=== PATIENT | female | born 1990 | race Caucasian/White ===

== ENCOUNTER 2016-12-08 03:03 | Inpatient (IN) ==
[2016-12-08] MEDS ORDERED: Ondansetron 4 MG/2 ML VIAL IVP PRN (03:44)
[2016-12-08] MEDS ORDERED: Naloxone 0.4 MG/ML INJ IVP PRN (03:44)
[2016-12-08] MEDS ORDERED: Famotidine 20 MG/2 ML VIAL IVP PRN (03:44)
[2016-12-08] MEDS ORDERED: Ringers Solution, Lactated 1,000 ML IVC SCH (03:45)
--- NOTE | 2016-12-08 03:48 | OB/GYN History & Physical ---
Date of Encounter: 12/08/16 Time of Encounter: 03:48 Assessment and Plan (1) 40 weeks gestation of Current visit: Yes Status: Acute admit for labor (2) Rubella non-immune status, antepartum Current visit: Yes Status: Acute Patient to be offered MMR prior to discharge. History of Present Illness Chief complaint: Patient presenst immanuel and 9cm HPI: Ms. Greco is a 26 year old female at 40w3d with EDC of 12/05/2016 presents to labor and delivery with complaints of contractions that started early Friday Morning. Patient reports +FM, denies LOF or VB. Blood type: O+, Hep B: Nonreactive, Rubella: Nonimmune, 1 hour gtt: Normal. Ultrasound of Tuesday December 06, 2016 gave JODIE of 20, EFW 11#1oz. Patient was offered a primary c/s for macrosomia. Patient declined. Patient delivered a 9#12oz infant vaginally. Dr. Adair notified of patient's history and is available on unit i assistance is needed. Past Med Surg Social Fam HX - Past Medical History Source: patient Medical history: no medical history Psychiatric history: no psych history - Past Surgical History Surgical History: no surgical history - Social History Smoking Status: Never smoker Smokeless Tobacco Status: No Alcohol use: none Drug use: none Occupational status: employed Current living situation: Home - Independent Activity Level: Independent ambulation Recent Out of Country Travel Within the Last 8 Weeks: No Exposure or Possible Exposure to Illness During Travel: No Obstetrical History - Pregnancies : 4 Para: 3 Term: 3 : 0 Ab's: 0 Livin Review of System OB - Constitutional Constitutional ROS IM: no fatigue, no fever(s), no headache(s) - Cardiovascular Cardiovascular: no chest pain, no palpitations, no rapid heart rate, no syncope - Respiratory Respiratory: no dyspnea - Gastrointestinal Gastrointestinal: no abdominal pain, no diarrhea, no heartburn, no nausea, no vomiting - Genitourinary Genitourinary: no abnormal vaginal bleeding, no dysuria, no flank pain, no urinary incontinence, no urinary urgency, no vaginal odor, no vaginal pruritis Exam - Constitutional Constitutional: well developed, well nourished, no acute distress, average body habitus - HEENT HEENT: Normocephaly, Mucus Membranes Moist - Neck Neck exam: full ROM, supple - Lungs Respiratory exam: CTAB - Cardiovascular Cardiovascular exam: RRR, +S1, +S2 - Abdomen Abdomen: Present: bowel sounds normal, gravid, non tender - Extremities Extremities exam: full ROM, normal capillary refill, normal inspection Deep Tendon Reflex Grade: 2+ Normal - Cervix Dilation: 9 (Per RN) Effacement: 100 - Anus/Rectum Anus/Rectum: Present: normal perianal skin - Comments Comments: FHR 145 bpm moderate variability +15x15 accels no decels noted CAt. 1 tracing. Contractions irregular. Results All other labs normal. - VTE Reasons for not Prescribing Prophylaxis: Treatment not Indicated - Low risk for VTE
[2016-12-08 04:07] LABS: Basophils % 0.3 %; Eosinophils # 0.2 K/mcL (0.0-0.6); Eosinophils % 1.3 %; Hematocrit 39.6 % (35.3-44.9); Immature Granulocytes % 1.1 % (0-4); Immature Platelets 5.4 % (1.1-6.1); Lymphocytes # 3.1 K/mcL (0.6-4.6); Mean Corpuscular HGB Conc 32.8 g/dL (31.6-35.5); Mean Corpuscular Volume 85.3 fL (83.0-100.0); Mean Platelet Volume 10.6 fL (9.4-12.4); Monocytes # 0.7 K/mcL (0.0-1.3); Monocytes % 6.2 %; Neutrophils # 7.7 K/mcL (1.6-8.9); Platelet Count 249 K/mcL (140-400); Red Blood Count 4.64 M/mcL (3.82-4.97); Red Cell Distribution Width 14.4 % (11.5-14.5); Segmented Neutrophils % 65.1 %
[2016-12-08] MEDS ORDERED: Oxytocin 20 units/ LR 1000 mL 20 UNIT/1,000 ML BAG IVC ONE ×2 (04:35→10:23)
[2016-12-08] MEDS ORDERED: Oxytocin 20 units/ LR 1000 mL 20 UNIT/1,000 ML BAG IVC SCH (06:15)
--- NOTE | 2016-12-08 09:49 | OB/GYN Procedure Note ---
Delivery - Delivery Date: 12/08/16 Provider: Sapna Oliver Intrapartum events: none Delivery induction: none Delivery augmentation: rupture of membranes, pitocin Delivery monitor: external FHT, external uterine, internal FHT Anesthesia: epidural Estimated Blood Loss: 400 - (s) A Infant Delivery Date: 12/08/16 Delivery Time: 09:07 Presentation: vertex Position: OA Route of delivery: Gender: Female Viability: Viable Pounds: 10 Ounces: 4 Weight Gram: 4.66 kg at 1 minute: 8 at 5 mins: 9 Shoulder Dystocia: not encountered Shoulder Dystocia Maneuvers: Aung maneuver Specimens collected: cord blood Placenta: spontaneous, uterine exploration Cord: 3 umbilical vessels - Repair Episiotomy: none Laceration Description: None - Complications Delivery complications: none - Disposition Mom disposition: stable in LDR [place] disposition: stable in LDR - Comments Comments: Patient reports feeling pressure. Patient placed in stirrups and and prepped for delivery. Patient began pushing with contractions. McRobert's was used to help delivery of infant. delivered spontaneously no nuchal, no shoulder dystocia or meconium was noted. was placed on maternal abdomen cord was clamped and cut. Perineum was intact. Spontaneous delivery of placenta. Placenta appeared to have an extra lobe and was sent to pathology. Infant was placed skin to skin and is breast feeding. Both Mother and infant are stable in LDR.
[2016-12-08] MEDS ORDERED: Measles/Mumps/Rubella Vacc 0.5 ML VIAL SQ PRN (10:23)
[2016-12-08] MEDS ORDERED: Oxytocin 20 units/ LR 1000 mL 20 UNIT/1,000 ML BAG IV SCH (10:23)
[2016-12-08] MEDS ORDERED: Acetaminophen 325 MG TABLET PO PRN (10:23)
[2016-12-08] MEDS ORDERED: *HR* HYDROcodone/Acet 5/325 mg TABLET PO PRN (10:23)
[2016-12-08] MEDS ORDERED: Ibuprofen 600 MG TABLET PO PRN (10:23)
--- NOTE | 2016-12-09 08:05 | Discharge Summary ---
Date of Encounter: 12/09/16 Time of Encounter: 08:03 - Discharge Diagnosis (1) 40 weeks gestation of Priority: Secondary Status: Acute (2) Rubella non-immune status, antepartum Priority: Secondary Status: Acute Comments: Will offer MMR prior to discharge. (3) Vaginal delivery Priority: Primary Status: Acute Comments: Continue routine care discharge home today follow up in 4-6 weeks with CNM - Discharge Medications Home Medications: Calcium 1,000 PO DAILY 12/08/16 [History] Tablet PO DAILY 12/08/16 [History] Vit/FA 1 each PO DAILY tablet 12/09/16 [Rx] Allergies/Adverse Reactions: Allergies No Known Allergies Allergy (Verified 12/08/16 04:14) Data Procedures and tests throughout hospitalization: Laboratory Tests 12/08/16 03:45 WBC 11.9 H RBC 4.64 Hgb 13.0 Hct 39.6 MCV 85.3 MCH 28.0 MCHC 32.8 RDW 14.4 Plt Count 249 MPV 10.6 Immature Gran % 1.1 Seg Neutrophils % 65.1 Lymphocytes % 26.0 Monocytes % 6.2 Eosinophils % 1.3 Basophils % 0.3 Neutrophils # 7.7 Lymphocytes # 3.1 Monocytes # 0.7 Eosinophils # 0.2 Basophils # 0.0 Immature Plt Fraction 5.4 Date of admission: 12/08/16 03:03 Primary care physician: Lizzy Ragsdale MD Consults: 12/08/16 10:23 Consult to Merchant Seaman [CONS] Routine Comment: Vaginal delivery, consult needed Discharging clinician: Sapna Oliver Anticipated date of discharge: 12/09/16 - Patient Status Disposition: Home, Self-Care Condition: Good Functional capacity at discharge: independent ambulation - Discharge Instructions Follow Up With: Lizzy Ragsdale MD [Primary Care Provider] - Sapna Oliver CNM [Non-Partnered Physician] - - Diet and Activity Activity: increase activity as tolerated Diet: regular diet Hospital Course Reason for admission: active labor Delivery: Episiotomy: none Laceration: none Other procedures: none complications: none Discharge diagnosis: IUP at term delivered [place] baby: female (breast feeding) Time Attestation: Total time spent providing and/or coordinating discharge services: Time Spent: Less than 30 minutes Exam - Constitutional Vitals: Temp Pulse Resp BP Pulse Ox 97.6 F 80 16 99/58 97 12/09/16 04:35 12/09/16 04:35 12/09/16 04:35 12/09/16 04:35 12/09/16 04:35 General appearance IM: A&O X 3, pleasant, answers questions appropriately - Respiratory Respiratory exam: Present: CTAB - Cardiovascular Cardiovascular exam IM: Present: RRR, +S1, +S2 - GI/Abdominal GI/Abdominal exam IM: normal bowel sounds - Uterine Tone: Firm Uterus Position: 1 Finger Below Umbilicus, Midline - Extremities Exam Extremities exam IM: Present: full ROM, normal capillary refill, normal inspection - Neurological Exam Neurological exam: alert, oriented X3, reflexes normal
[2016-12-09 08:45] VITALS: BP 108/72
[2016-12-09] MEDS ORDERED: Prenatal Vit/FA 1 EACH TABLET PO SCH (09:00)
== END 2016-12-09 11:35 | disposition home or self-care (01) | DRG 775 ==
LOC: 1NENULAB → OBSVTOIN 03:03 → 1NENUOBS 12:25
PROVIDERS: ADMIT Advanced Practice Midwife; ATTEND Advanced Practice Midwife

== ENCOUNTER 2019-03-29 05:35 | Inpatient (IN) ==
[~2019-03-29 05:35] MED LIST: *HR* Nalbuphine 10 MG/ML AMPUL IVP PRN; Famotidine 20 MG/2 ML VIAL IVP PRN; Lidocaine 1% 20 ML MDV INFILT PRN; Metoclopramide 10 MG/2 ML VIAL IVP PRN; Naloxone 0.4 MG/ML INJ IVP PRN
[2019-03-29] MEDS ORDERED: Ringers Solution, Lactated 1,000 ML IVC SCH (05:45)
[2019-03-29 05:55] LABS: Basophils % 0.3 %; Eosinophils # 0.2 K/mcL (0.0-0.6); Eosinophils % 1.8 %; Hematocrit 36.9 % (35.3-44.9); Hemoglobin 12.2 g/dL (11.5-15.4); Lymphocytes # 2.8 K/mcL (0.6-4.6); Lymphocytes % 22.1 %; Mean Corpuscular HGB Conc 33.1 g/dL (31.6-35.5); Mean Corpuscular Hemoglobin 28.8 pg (28.0-33.3); Mean Corpuscular Volume 87.2 fL (83.0-100.0); Mean Platelet Volume 10.2 fL (9.4-12.4); Monocytes # 0.7 K/mcL (0.0-1.3); Monocytes % 5.6 %; Neutrophils # 8.6 K/mcL (1.6-8.9); Platelet Count 250 K/mcL (140-400); Red Blood Count 4.23 M/mcL (3.82-4.97); Red Cell Distribution Width 13.7 % (11.5-14.5); Segmented Neutrophils % 69.2 %; White Blood Count 12.4 K/mcL (4.3-11.1)
[2019-03-29 05:59] LABS: Amphetamine Screen,Urine Negative ng/mL (Cutoff=1000); Barbiturate Screen,Urine Negative ng/mL (Cutoff=200); Benzodiazepines Screen,Urine Negative ng/mL (Cutoff=200); Cannabinoid Screen,Urine Negative ng/mL (Cutoff = 50); Cocaine Screen,Urine Negative ng/mL (Cutoff= 300); Opiate Screen,Urine Negative ng/mL (Cutoff=300); Phencyclidine Screen,Urine Negative ng/mL (Cutoff=25)
--- NOTE | 2019-03-29 06:03 | OB/GYN History & Physical ---
Date of Encounter: 03/29/19 Time of Encounter: 05:51 Assessment and Plan (1) 39 weeks gestation of Current visit: Yes Status: Acute (2) Spontaneous onset of labor Current visit: Yes Status: Acute Admit to labor and delivery Nubain and epidural as desired Intermittent auscultation Ambulation as desired GBS negative Anticipate (3) Rubella non-immune status, antepartum Current visit: No Status: Acute History of Present Illness Chief complaint: Spontaneous onset of labor HPI: Ms. Greco is a 29 year old female 39 and 0 weeks gestation presents to triage with reports of contraction. Patient states she is been having contracti ons since yesterday morning. Reports good movement, denies vaginal bleeding or leaking of fluid. care with nurse midwives, late entry to care. Patient also has umbilical hernia. History of LGA infants, largest baby 10 lbs. 4 oz. hemorrhage with last delivery Labs: O+, rubella nonimmune, varicella immune, GBS negative, all other serologies negative Past Med Surg Social Fam HX - Past Medical History Source: patient Medical history: no medical history Additional medical history: asthma Psychiatric history: no psych history - Past Surgical History Surgical History: no surgical history - Social History Smoking Status: Never smoker Smokeless Tobacco Status: No Alcohol use: none Drug use: none - Family History Mother Living Status: Still Living Hx Family Cardiac Disorders: No Hx Family Respiratory Disorders: No Hx Family Cancer: No Hx Family GI Disorders: No Hx Family Endocrine Disorder: No Hx Family Musculoskeletal Disorders: No Hx Family Neuromuscular Disorders: No Hx Family Neurologic Disorders: No Hx Family HEENT Disorders: No Hx Family Autoimmune Disorders: No Hx Family Reproductive Disorders: No Hx Family Psychosocial Disorders: No Hx Family Medical Disorders: No Obstetrical History - Pregnancies : 5 Para: 4 Term: 4 : 0 Ab's: 0 Livin Medications and Allergies Calcium 1,000 PO DAILY 12/08/16 [History] Tablet PO DAILY 12/08/16 [History] Vit/FA 1 each PO DAILY tablet 12/09/16 [Rx] Albuterol Sulfate [Albuterol Inhaler] 03/29/19 [History] Albuterol Sulfate [Proair Hfa] 03/29/19 [History] Allergy/AdvReac Type Severity Reaction Status Date / Time No Known Allergies Allergy Verified 12/08/16 04:14 Exam - Constitutional Constitutional: well developed, well nourished, no acute distress - Neck Neck exam: full ROM - Lungs Respiratory exam: CTAB - Cardiovascular Cardiovascular exam: RRR, +S1, +S2 - Abdomen Abdomen: Present: gravid, non tender - Extremities Extremities exam: normal capillary refill, normal inspection - Cervix Dilation: 7 (per RN) - Comments Comments: Umbilical hernia noted Results All other labs normal. - VTE Reasons for not Prescribing Prophylaxis: Treatment not Indicated - Low risk for VTE
--- NOTE | 2019-03-29 09:06 | OB Labor Progress Note ---
Date of Encounter: 03/29/19 Time of Encounter: 09:04 Labor Progress Note - Subjective Subjective: Natasha is tolerating her ctxs, every 7-9 minutes. She would like us to break her water to move things along. She plans to have a natural . She has never had an epidural or any pain medication for her deliveries. - Vital Signs Vital Signs: VSS, normotensive - Cervix Cervix: unchanged from [id number]-5-8/80/-1 AROM clear fluid - Heart Tones Heart Tones: 145/mod variability/+A,-D, she has elected to do intermittent monitoring per un it protocol - Elrama Elrama: per patient, q7-9 minutes (she is doing intermittent monitoring) - Interventions Interventions: AROM - Plan Plan: 29yo at 39 0/7 wks for labor who is really advanced cervical dilation, not in active labor, now ruptured for labor induction/augmentation per patient request. Plan to recheck in 2 hours unless there is an urge to push. Continue intermittent monitoring per patient request unless there is any concern.
[2019-03-29] MEDS ORDERED: miSOPROStol 25 MCG TABLET VG PRN (12:01)
[2019-03-29] MEDS ORDERED: Oxytocin 20 units/ LR 1000 mL 20 UNIT/1,000 ML BAG IVC SCH ×2 (14:45→21:27)
[2019-03-29] MEDS ORDERED: Acetaminophen IV 1,000 MG/100 ML INFUS..BTL IVPB ONE (17:54)
[2019-03-29] MEDS ORDERED: *HR* OxyCODONE Immed Rel 5 MG TABLET PO PRN (17:54)
[2019-03-29] MEDS ORDERED: *HR* HYDROmorphone (PF) 1 MG/ML SYRINGE IVP PRN (17:54)
[2019-03-29] MEDS ORDERED: *HR* Promethazine 25 MG/ML VIAL IVP PRN (17:54)
[2019-03-29] MEDS ORDERED: Azithromycin 500 MG in D5% in Water 250 ML IVPB ONE (18:11)
[2019-03-29] MEDS ORDERED: Ringers Solution, Lactated 1,000 ML ONE (18:12)
[2019-03-29] MEDS ORDERED: Ondansetron 4 MG/2 ML VIAL ONE (18:12)
[2019-03-29] MEDS ORDERED: *HR* Oxytocin 10 UNIT/ML VIAL IM ONE (18:12)
[2019-03-29] MEDS ORDERED: Dexamethasone 4 MG/ML VIAL ONE (18:12)
[2019-03-29] MEDS ORDERED: *HR* FentaNYL (PF) 250 MCG/5 ML VIAL ONE (18:12)
[2019-03-29] MEDS ORDERED: *HR* Midazolam HCl 2 MG/2 ML VIAL ONE (18:12)
[2019-03-29] MEDS ORDERED: *HR* FentaNYL (PF) 100 MCG/2 ML VIAL ONE (18:26)
--- NOTE | 2019-03-29 18:28 | OB/GYN Procedure Note ---
Section - Date of procedure: 03/29/19 Preop diagnosis: other (Cord prolapse) Post-op diagnosis: same Procedure: primary low transverse, other (Emergent) Surgeon: Don Bowers Quantitated Blood Loss: 500 Was there an assistant credit manager present: Yes Mount Loader: Elizabeth Hicks Anesthesiologist: Mayi Queen Anesthesia Type: General section complications: none Disposition: Post floor Specimens: Placenta - (s) A Infant Delivery Date: 03/29/19 Delivery Time: 17:47 Presentation: vertex Position: OA Route of delivery: other Gender: Male Viability: Viable Pounds: 9 Ounces: 0 Gram Weight: 4.075 kg at 1 minute: 9 at 5 minutes: 9 Placenta: partial extraction Cord: 3 umbilical vessels - Narrative Narrative: Patient had arrest of dilation at 8-9 cm. Patient had been on knee-chest has not been no progression and nursing felt infant was in occiput posterior presentation. On the monitor we noted deep variable decelerations. One in the room patient was flipped over her back and was examined. There was a cord found to be in the vagina. The cord was immediately elevated into the pelvis. Nursing and anesthesia was immediately notified. Nursing took my place with a hand in the vagina holding the chorda. Patient was taken immediately to the operating room for section. Anesthesia was present in the room multiple nursing staff attacks were present. Dr. Hicks was present to assist with delivery as this was emergency. Patient was immediately prepped and draped given general anesthesia. Once patient was asleep a Pfannenstiel incision was made and carried sharply through subcutaneous taste and fatty tissue until the fascial layers reached. The fascia was then nicked bilaterally and manually dilated. The fascia was then dissected superiorly and inferiorly without difficulty. The rectus abdominis muscles creatures and separate the midline and the peritoneum sharply entered and this was all bluntly dilated. A bladder blade was placed at the inferior margin incision. A lower transverse incision was then made lower uterine segment. Cord came out immediately. The incision was bluntly extended. The incision was then delivered. There was a cord around the neck 1 which was easily reduced. The rest the Pitocin delivered without difficulty. Infant cried immediately upon delivery. Cord was Cut. was passed to NICU team in attendance. Cord blood was obtained. Uterine massage was performed to release the placenta. Placenta was then delivered without any difficulty. The uterus was delivered at this point. Uterine lavage was performed. The incision was then closed the Vicryl suture in a running locking fashion. There was excellent hemostasis. There is one final [id number] placed for final hemostasis. Uterus was replaced the pelvic cavity. The pelvic cavity was rinsed thoroughly with sterile water 2. The fascia was closed with 0 Vicryl suture in a running nonlocking fashion. The suprafascial region was rinsed thoroughly with sterile water 2. All bleeders were then cauterized. The skin was closed terri. Estimated blood loss is 500 mL. Patient delivered a male infant weight was 4075 g, 9 lbs. 0 oz. Estimated blood loss is 500 mL
[2019-03-29] MEDS ORDERED: Propofol 500 MG/50 ML INFUS..BTL ONE (18:56)
[2019-03-29] MEDS ORDERED: *HR* Succinylcholine 200 MG/10 ML VIAL IVP ONE (18:56)
[2019-03-29] MEDS ORDERED: Sennosides 8.6 MG TABLET PO PRN (21:27)
[2019-03-29] MEDS ORDERED: *HR* OxyCODONE/APAP 5/325 TABLET PO PRN (21:27)
[2019-03-29] MEDS ORDERED: Simethicone 80 MG TAB.CHEW PO PRN (21:27)
[2019-03-29] MEDS ORDERED: Ondansetron 4 MG/2 ML VIAL IVP PRN (21:27)
[2019-03-29] MEDS ORDERED: Metoclopramide 10 MG/2 ML VIAL IVP PRN (21:27)
[2019-03-30] MEDS: ceFAZolin 2,000 MG in 0.9 % Sodium Chloride 100 ML IVPB SCH ×3 (00:22→20:02)
[2019-03-30] MEDS: Ibuprofen 600 MG TABLET PO PRN ×3 (05:05→17:57)
--- NOTE | 2019-03-30 06:07 | Anesthesia Evaluation Post Op ---
Date of Encounter: 03/29/19 Time of Encounter: 23:12 - Vital Signs Vital Signs: late entry 0605, vss - Lungs Lungs: Clear Ascult./Percussion - Airway Airway: Non-obstructed - Mental Status Mental Status: Alert & Oriented, Answers Appropriately - Pain Pain Scale used: Xander (Faces) - Nausea Vomiting Nausea Vomiting: Not Present - Hydration Hydration: Ice chips - Discharge PostOp Status: Transfer Patient to floor
[2019-03-30 08:19] LABS: Basophils % 0.2 %; Eosinophils % 0.1 %; Hematocrit 35.4 % (35.3-44.9); Hemoglobin 11.6 g/dL (11.5-15.4); Immature Granulocytes % 0.9 % (0-4); Lymphocytes # 2.4 K/mcL (0.6-4.6); Lymphocytes % 17.2 %; Mean Corpuscular HGB Conc 32.8 g/dL (31.6-35.5); Mean Corpuscular Hemoglobin 29.1 pg (28.0-33.3); Mean Corpuscular Volume 88.9 fL (83.0-100.0); Mean Platelet Volume 9.9 fL (9.4-12.4); Monocytes % 7.4 %; Neutrophils # 10.3 K/mcL (1.6-8.9); Platelet Count 260 K/mcL (140-400); Red Blood Count 3.98 M/mcL (3.82-4.97); Red Cell Distribution Width 13.6 % (11.5-14.5); Segmented Neutrophils % 74.2 %; White Blood Count 13.9 K/mcL (4.3-11.1)
[2019-03-30] MEDS ORDERED: Prenatal Vit/FA 1 EACH TABLET PO SCH (09:00)
--- NOTE | 2019-03-30 11:47 | OB/GYN Progress Note ---
Date of Encounter: 03/30/19 Time of Encounter: 11:42 - Assessment and Plan (1) delivery delivered Current Visit: Yes Status: Acute Maintain incision dressing with abdominal binder for support. Pain medication as needed. Advance diet as tolerated. Ambulate as tolerated. Plan for discharge on POD#2. Code(s): O82 - Encounter for delivery without indication (2) Umbilical hernia Current Visit: Yes Status: Acute Pain management as needed. Referral to general surgery to see about repair of hernia. Cost is a concern for patient. Qualifiers: Obstruction and gangrene presence: without obstruction or gangrene Qualified Code(s): K42.9 - Umbilical hernia without obstruction or gangrene (3) () Current Visit: Yes Status: Acute Assess mother for breast discomfort & nipple soreness. Assess latch, suck & swallow. Encourage feeding on demand at least every 3 hours. Subjective - Subjective Interval history: 29 y/o female section POD#1 with good pain control on Motrin. Has some increased pain when coughs. Tolerating diet well, denies passing flatus. Ambulating without difficulty. Had some passing nipple soreness but states baby is feeding well at breast. Patient reports: appetite normal, pain well controlled, ambulating normally [place]: doing well, nursing well Objective - Vital Signs Latest vital signs: Vital Signs Temp Pulse Resp BP Pulse Ox 03/30/19 07:55 98.3 F 85 16 123/65 03/30/19 04:30 98.3 F 69 14 119/72 96 03/30/19 00:22 98.4 F 74 14 120/69 96 03/29/19 23:00 98.3 F 75 16 118/68 96 03/29/19 22:00 98.4 F 75 16 111/66 95 03/29/19 21:30 98.2 F 83 16 117/68 96 03/29/19 21:00 98.5 F 75 16 114/69 96 Intake and Output 03/29/19 03/30/19 03/30/19 23:59 07:59 15:59 Intake Total 900 / 1140 240 / 1140 Output Total 660 / 660 440 / 540 100 / 540 Balance -660 / -660 460 / 600 140 / 600 Intake: IV Fluids 100 / 100 Ancef 2,000 MG In 0.9 % Sodium 100 / 100 Chloride 100 ML @ 200 mls/hr IVPB Q8HR [facility] Rx#:[id number] Oral 800 / 1040 240 / 1040 Output: Urine 100 / 200 100 / 200 Catheter 660 / 660 340 / 340 Other: Meal Breakfast Percent of Meal Consumed 100% Weight 95.5 kg Patient Weight 03/30/19 23:59 Weight 95.5 kg - Exam Lungs: bilateral: normal Chest: Normal S1, Normal S2 Extremities: Present: normal Abdomen: Present: normal appearance, soft, hernia (umbilical hernia, about 3-4 cm diameter) Incision: Present: normal, dry, intact Uterus: Present: firm Fundal Height: 2 (U/-2) - Labs Labs: Laboratory Results - last 24 hr 03/30/19 08:03 WBC 13.9 H RBC 3.98 Hgb 11.6 Hct 35.4 MCV 88.9 MCH 29.1 MCHC 32.8 RDW 13.6 Plt Count 260 MPV 9.9 Immature Gran % 0.9 Seg Neutrophils % 74.2 Lymphocytes % 17.2 Monocytes % 7.4 Eosinophils % 0.1 Basophils % 0.2 Neutrophils # 10.3 H Lymphocytes # 2.4 Monocytes # 1.0 Eosinophils # 0.0 Basophils # 0.0
[2019-03-30] MEDS ORDERED: 0.9 % Sodium Chloride 250 ML ONE (19:59)
[2019-03-31] MEDS: Ibuprofen 600 MG TABLET PO PRN ×2 (00:27→06:08)
[2019-03-31 08:36] VITALS: BP 122/83
--- NOTE | 2019-03-31 08:59 | Discharge Summary ---
Date of Encounter: 03/31/19 Time of Encounter: 08:57 - Discharge Diagnosis (1) Breast feeding status of mother Priority: Secondary Status: Acute Comments: support prn (2) delivery delivered Priority: Primary Status: Acute Comments: Continue routine care Discharge home today Follow up appt in 1 week for staple removal 2 week incision check with Dr. Hicks - Discharge Medications Prescriptions: New Ibuprofen [Motrin] 600 mg PO Q6HR PRN tablet PRN Reason: Cramping Docusate [Colace] 100 mg PO BID capsule Continued Tablet PO DAILY Calcium 1,000 PO DAILY Albuterol Sulfate [Proventil Inhaler] Albuterol Sulfate [Proair Hfa] Discontinued Vit/FA 1 each PO DAILY tablet Home Medications: Calcium 1,000 PO DAILY 12/08/16 [History] Tablet PO DAILY 12/08/16 [History] Albuterol Sulfate [Proair Hfa] 03/29/19 [History] Albuterol Sulfate [Proventil Inhaler] 03/29/19 [History] Docusate [Colace] 100 mg PO BID capsule 03/31/19 [Rx] Ibuprofen [Motrin] 600 mg PO Q6HR PRN tablet 03/31/19 [Rx] Allergies/Adverse Reactions: Allergy/AdvReac Type Severity Reaction Status Date / Time No Known Allergies Allergy Verified 12/08/16 04:14 Data Procedures and tests throughout hospitalization: Laboratory Tests 03/29/19 03/29/19 03/30/19 05:20 05:20 08:03 WBC 12.4 H 13.9 H RBC 4.23 3.98 Hgb 12.2 11.6 Hct 36.9 35.4 MCV 87.2 88.9 MCH 28.8 29.1 MCHC 33.1 32.8 RDW 13.7 13.6 Plt Count 250 260 MPV 10.2 9.9 Immature Gran % 1.0 0.9 Seg Neutrophils % 69.2 74.2 Lymphocytes % 22.1 17.2 Monocytes % 5.6 7.4 Eosinophils % 1.8 0.1 Basophils % 0.3 0.2 Neutrophils # 8.6 10.3 H Lymphocytes # 2.8 2.4 Monocytes # 0.7 1.0 Eosinophils # 0.2 0.0 Basophils # 0.0 0.0 Urine Opiates Screen Negative Ur Buprenorphine Scrn Negative Ur Barbiturates Screen Negative Ur Phencyclidine Scrn Negative Ur Amphetamines Screen Negative U Benzodiazepines Scrn Negative Urine Cocaine Screen Negative U Marijuana (THC) Screen Negative Ur Drug Screen Interp See Below - Impressions ITS Impressions KUB X-Ray 03/29/19 17:58 IMPRESSION: No radiopaque foreign body identified. D/ / Domingo Barnes MD / Domingo Barnes MD Interpreting Provider: Domingo Barnes MD Date of admission: 03/29/19 05:35 Primary care physician: PCP NONE Consults: 03/30/19 10:37 Consult to Surgery [CONS] Routine Consulting Provider: Patricia Hwang Reason for Consult: umbilical hernia, per pt Sapna spoke to Dr. Guillen during and Dr. Guillen said he would see pt while she is here. She is holiness and would like more information about repair and cost of repair. She was having pain prior to . Call Completed: Yes Discharging clinician: Sapna Oliver Anticipated date of discharge: 03/31/19 - Patient Status Disposition: Home, Self-Care Condition: Good - Discharge Instructions Follow Up With: NONE,PCP [Primary Care Provider] - Elizabeth Hicks [Partnered Physician] - - Diet and Activity Activity: increase activity as tolerated Diet: regular diet Hospital Course Reason for admission: active labor Delivery: section (for cord prolapse) Episiotomy: none Laceration: none Other procedures: none complications: none Discharge diagnosis: IUP at term delivered baby: male (breast feeding) Time Attestation: Total time spent providing and/or coordinating discharge services: Time Spent: Less than 30 minutes - VTE Reasons for not Prescribing Prophylaxis: Treatment not Indicated - Low risk for VTE Documentation of Mechanical Device: Intermittent pneumatic compression device Exam - Constitutional Vitals: Temp Pulse Resp BP Pulse Ox 97.7 F 83 16 122/83 97 03/31/19 08:34 03/31/19 08:34 03/31/19 08:34 03/31/19 08:34 03/31/19 08:34 General appearance IM: A&O X 3, pleasant, answers questions appropriately - Respiratory Respiratory exam: Present: CTAB - Cardiovascular Cardiovascular exam IM: Present: RRR, +S1, +S2 - GI/Abdominal GI/Abdominal exam IM: normal bowel sounds Incision: intact, other (terri and binder), dressed - Uterine Tone: Firm Uterus Position: Midline - Extremities Exam Extremities exam IM: Present: full ROM, normal capillary refill, normal inspection - Neurological Exam Neurological exam: alert, oriented X3, reflexes normal
== END 2019-03-31 11:00 | disposition home or self-care (01) | DRG 788 ==
LOC: 1NENULAB → 1NENUOBS 21:25
PROVIDERS: ADMIT Advanced Practice Midwife; ATTEND Advanced Practice Midwife